=== PATIENT | female | born 1965 | race African-American/Black ===

== ENCOUNTER 2024-09-03 17:28 | Emergency (ER) | payer BC ==
[~2024-09-03] VITALS: Ht 154.9 cm; Wt 72.6 kg
[2024-09-03 17:28] VITALS: BP_SYST 144; PULSE 60; RESP 18; TEMP 97.5; O2SAT 100
[2024-09-03] MEDS ORDERED: TRAM50TA2 PO (19:34)
[2024-09-03] MEDS ORDERED: NAPR-688 PO (19:34)
== END 2024-09-03 19:44 | disposition home or self-care (01) ==
LOC: SED 17:28
DX: S83.8X1A Sprain of other specified parts of right knee, initial encounter (principal); Z85.42 Personal history of malignant neoplasm of other parts of uterus; Z85.43 Personal history of malignant neoplasm of ovary; Z90.710 Acquired absence of both cervix and uterus; Z90.49 Acquired absence of other specified parts of digestive tract; Z79.899 Other long term (current) drug therapy; X50.9XXA Other and unspecified overexertion or strenuous movements or postures, initial encounter; Y93.02 Activity, running; Y92.89 Other specified places as the place of occurrence of the external cause; Y99.8 Other external cause status
CPT/HCPCS: 73560; 99283